=== PATIENT | female | born 1935 | race Caucasian/White ===

== ENCOUNTER 2017-04-21 16:05 | Inpatient (IN) | payer OTHER, MEDICARE ==
[~2017-04-21] VITALS: Ht 165.1 cm; Wt 53.4 kg
[~2017-04-21 16:05] MED LIST: ALENDRONATE SOD70 MG PO; BENTYL10 MG PO; BENTYL20 MG PO; DURAGESIC50 MCG TD; EMLA TP; ENDOCET 5-3251 EACH PO; ERGOCALCIF50000 UNIT PO; ERYTHROMYC1 APPLICAT BOTH EYES; FENTANYL1 EAC1 TD; FENTANYL1 EAC5 TD; IMODIUM MS REL1 EACH PO; LORAZEPAM0.5 MG PO; LOTREL 5/101 CAPSULE PO; METAMUCIL PACKE1 PKT PO; METAMUCIL POWD798 GM PO; NEXIUM40 MG PO; POTASSIUM CHLO10 ME3 PO; TYLENOL REGULA325 MG PO; ZOFRAN4 MG PO
[2017-04-21 17:36] LABS: EOSINOPHIL (%) 1.6 % (0-5); EOSINOPHIL COUNT 0.1 K/uL (0-0.3); IMMATURE GRANULOCYTE (%) 0.6 % (0.0-0.7); INSTRUMENT ABS NEUTROPHIL CT 3.7 K/uL; MCH 32.1 PG (29.0-34.0); MCHC 32.9 G/DL (30.0-36.0); MCV 97.5 FL (83-99); MONOCYTE (%) 4.2 % (3-12); MONOCYTE COUNT 0.2 K/uL (0-0.8); NEUTROPHIL COUNT 3.7 K/uL (1.8-6.4); RBC DIS.WIDTH-CV 18.6 % (11.8-14.6); RBC DIS.WIDTH-SD 66.1 % (39-53); RED BLOOD COUNT 3.18 M/uL (3.80-5.20)
[2017-04-21 17:41] LABS: PLATELET COUNT 157 K/uL (156-360)
[2017-04-21 18:02] LABS: TROP-I INTERPRETATION NEGATIVE; TROPONIN-I < 0.01 ng/mL (0.0-0.30)
[2017-04-21 18:03] LABS: CHLORIDE 102 mEq/L (99-109); SODIUM 136 mEq/L (136-147)
[2017-04-21 18:05] LABS: GLUCOSE 123 mg/dL (70-99)
[2017-04-21 18:06] LABS: ANION GAP 8 MEQ/L (2-14)
[2017-04-21 18:09] LABS: GFR ESTIMATE (CALCULATED) 51 mL/min/
[2017-04-21 18:10] LABS: UREA NITROGEN (BUN) 24 mg/dL (9-23)
[2017-04-21 22:56] LABS: PROTHROMBIN TIME 10.1 (9.2-11.2); PTT 22.6 (25-32)
[2017-04-21] MEDS ORDERED: MIRALAX255 GM PO (23:20)
[2017-04-21] MEDS ORDERED: IRON325 M1 PO (23:20)
[2017-04-21] MEDS ORDERED: DURAGESIC25 MCG TD (23:21)
[2017-04-21] MEDS ORDERED: STOOL SOFTENER100 M1 PO (23:21)
[2017-04-21] MEDS ORDERED: BENAZEPRIL HCL10 MG PO (23:21)
[2017-04-21] MEDS ORDERED: CHEMO (23:22)
[2017-04-22] VITALS (7 sets, daily range): BP systolic 119–137; BP diastolic 56–64
[2017-04-22 06:15] LABS: EOSINOPHIL (%) 2.4 % (0-5); EOSINOPHIL COUNT 0.1 K/uL (0-0.3); IMMATURE GRANULOCYTE (%) 0.4 % (0.0-0.7); INSTRUMENT ABS NEUTROPHIL CT 2.5 K/uL; LYMPHOCYTE COUNT 2.2 K/uL (1.0-2.8); MCH 32.3 PG (29.0-34.0); MCHC 32.7 G/DL (30.0-36.0); MEAN PLAT.VOLUME 10.2 uM^3 (9.5-12.4); MONOCYTE (%) 4.6 % (3-12); MONOCYTE COUNT 0.2 K/uL (0-0.8); NEUTROPHIL COUNT 2.5 K/uL (1.8-6.4); PLATELET COUNT 166 K/uL (156-360); RBC DIS.WIDTH-CV 18.7 % (11.8-14.6); RBC DIS.WIDTH-SD 67.6 % (39-53); RED BLOOD COUNT 3.03 M/uL (3.80-5.20); WHITE BLOOD COUNT 5.1 K/uL (4.1-10.2)
[2017-04-22 08:19] LABS: ALKALINE PHOSPHATASE 71 IU/L (3-129); ANION GAP 9 MEQ/L (2-14); CHLORIDE 107 MEQ/L (99-109); GFR ESTIMATE (CALCULATED) > 59 mL/min/; SAMPLE HEMOLYSIS CHECK 0; SAMPLE ICTERIC CHECK 0; SAMPLE LIPEMIA CHECK 0; SODIUM 140 MEQ/L (136-147); UREA NITROGEN (BUN) 19 mg/dL (9-23)
[2017-04-22 08:22] LABS: GLUCOSE 92 mg/dL (70-99); TOTAL BILIRUBIN 0.6 MG/DL (0.0-1.0)
[2017-04-23 02:39] VITALS: BP 118/58
[2017-04-23 08:00] VITALS: BP 124/59
[2017-04-23 12:03] VITALS: BP 120/85
[2017-04-23 16:17] VITALS: BP 119/75
[2017-04-23 19:41] VITALS: BP 145/63
[2017-04-23 23:41] VITALS: BP 139/60
[2017-04-24 08:18] VITALS: BP 130/63
[2017-04-24 12:00] VITALS: BP 140/61
[2017-04-24 17:56] VITALS: BP 132/64
[2017-04-24 19:41] VITALS: BP 137/62
[2017-04-24 23:29] VITALS: BP 129/58
[2017-04-25 03:39] VITALS: BP 130/58
[2017-04-25 06:41] LABS: EOSINOPHIL (%) 4.5 % (0-5); EOSINOPHIL COUNT 0.3 K/uL (0-0.3); IMMATURE GRANULOCYTE (%) 0.7 % (0.0-0.7); INSTRUMENT ABS NEUTROPHIL CT 2.6 K/uL; LYMPHOCYTE COUNT 2.6 K/uL (1.0-2.8); MCH 33.2 PG (29.0-34.0); MCV 100.7 FL (83-99); MEAN PLAT.VOLUME 10.3 uM^3 (9.5-12.4); MONOCYTE COUNT 0.5 K/uL (0-0.8); NEUTROPHIL (%) 42.9 % (45-76); NEUTROPHIL COUNT 2.6 K/uL (1.8-6.4); PLATELET COUNT 131 K/uL (156-360); RBC DIS.WIDTH-CV 18.6 % (11.8-14.6); RBC DIS.WIDTH-SD 68.2 % (39-53); RED BLOOD COUNT 2.68 M/uL (3.80-5.20)
[2017-04-25 07:19] LABS: ANION GAP 7 MEQ/L (2-14); CHLORIDE 108 MEQ/L (99-109); GFR ESTIMATE (CALCULATED) 51 mL/min/; GLUCOSE 87 mg/dL (70-99); POTASSIUM 4.1 MEQ/L (3.7-5.4); SAMPLE HEMOLYSIS CHECK 0; SAMPLE ICTERIC CHECK 0; SAMPLE LIPEMIA CHECK 0; SODIUM 140 MEQ/L (136-147); UREA NITROGEN (BUN) 20 mg/dL (9-23)
[2017-04-25 07:57] VITALS: BP 134/61
[2017-04-25 12:19] VITALS: BP 133/63
[2017-04-25 16:49] VITALS: BP 123/59
[2017-04-25 19:22] VITALS: BP 148/63
[2017-04-25 23:31] VITALS: BP 138/61
[2017-04-26 04:00] VITALS: BP 128/59
[2017-04-26 07:17] VITALS: BP 147/66
[2017-04-26 11:32] VITALS: BP 147/59
[2017-04-26] MEDS ORDERED: ELIQUIS2.5 MG PO (15:02)
[2017-04-26 16:04] VITALS: BP 121/58
== END 2017-04-26 16:38 | disposition home or self-care (01) | DRG 300 ==
LOC: EME 16:05 → EDOF 22:34 → 5EAST 22:34
PROVIDERS: Emergency Medicine; Internal Medicine
DX: I82.210 Acute embolism and thrombosis of superior vena cava (principal); C25.9 Malignant neoplasm of pancreas, unspecified; I82.412 Acute embolism and thrombosis of left femoral vein; E11.9 Type 2 diabetes mellitus without complications; D64.9 Anemia, unspecified; F32.9 Major depressive disorder, single episode, unspecified; I10 Essential (primary) hypertension; E78.5 Hyperlipidemia, unspecified; F41.9 Anxiety disorder, unspecified; K21.9 Gastro-esophageal reflux disease without esophagitis; K52.9 Noninfective gastroenteritis and colitis, unspecified; M19.90 Unspecified osteoarthritis, unspecified site; M81.0 Age-related osteoporosis without current pathological fracture; Z82.0 Family history of epilepsy and other diseases of the nervous system; Z82.49 Family history of ischemic heart disease and other diseases of the circulatory system; Z90.49 Acquired absence of other specified parts of digestive tract; R07.1 Chest pain on breathing; R79.89 Other specified abnormal findings of blood chemistry; Z79.899 Other long term (current) drug therapy; N28.9 Disorder of kidney and ureter, unspecified
CPT/HCPCS: 71275; 80048; 80053; 84484; 85025; 85610; 85730; 93005; 93970; 94799; 99281; 99285; J2405; J7030